=== PATIENT | female | born 1995 | race Caucasian/White ===

== ENCOUNTER 2017-09-18 00:07 | Emergency (ER) | payer OTHER ==
[~2017-09-18] VITALS: Ht 167.6 cm; Wt 64.5 kg
[2017-09-18 00:10] VITALS: Ht 167.6 cm; Wt 64.5 kg
[2017-09-18 00:22] VITALS: TEMP 36.5
[2017-09-18] MEDS ORDERED: SODIUM CHLORIDE 0.9% 1000ML 1,000 ML IV STA (00:26)
[2017-09-18] MEDS ORDERED: KETOROLAC TROMETHAMINE 30 MG/ML VIAL IV STA (00:26)
[2017-09-18] MEDS ORDERED: DiphenhydrAMINE HCL 50 MG/ML VIAL IV STA (00:26)
[2017-09-18] MEDS ORDERED: PROCHLORPERAZINE 5 MG/ML 2 ML VIAL IV STA (00:26)
--- NOTE | 2017-09-18 00:34 | EMERGENCY ROOM VISIT NOTE ---
History Report prepared by Alidaibchad: Bekah Mcnamara Under the Supervision of: Dr. Maru Vazquez D.O. First contact with patient: 00:15 Chief Complaint: HEADACHE Stated Complaint: MIGRAINE,THROWING UP FOR 2 HRS History of Present Illness The patient is a 22 year old female who presents to the Emergency Room with complaints of recurrent migraine since 1729 yesterday. She reports the headache began at that time. She has a history of migraines. She took an injection of 100 mg Sumatriptan and the migraine resolved for one hour, though returned. She states the migraines usually resolve after medication. She states that she has been hospitalized twice for migraines, though the last time was in Summer 2016. She denies any changes with her symptoms with this migraine, though states this migraine is worse than previous ones. She notes nausea and vomiting. Per friend , she has been vomiting for three hours. She denies any sickness, cough, or cold. Her LNMP was one week ago. She denies any other underlying medical problems. She is a [employer] student. She is from [place]. Source of History: patient, friend Onset: 1729 yesterday Position: head Quality: ache Timing: other (recurrent) Associated Symptoms: + nausea, + vomiting, No cough Review of Systems See HPI for pertinent positives & negatives. A total of 10 systems reviewed and were otherwise negative. Past Medical & Surgical Medical Problems: (1) Migraine Family History No pertinent family history Social History Smoking Status: Never Smoker Smokeless Tobacco Use: No Alcohol Use: none Drug Use: none Marital Status: single Housing Status: lives with roommate Occupation Status: [employer] student Current/Historical Medications Scheduled Amphetamine-Dextroamphetamine 20MG (Adderall Xr 20MG), 20 MG PO [id number] Scheduled PRN Amphetamine-Dextroamphetamine 20MG (Adderall 20MG), 20 MG PO DAILY PRN for adhd Sumatriptan Succinate (Imitrex), 100 MG PO UD PRN for Migraine Allergies Coded Allergies: Amoxicillin (Verified Allergy, Intermediate, RASH, 09/18/17) Physical Exam Vital Signs Date Time Temp Pulse Resp B/P (MAP) Pulse Ox O2 Delivery O2 Flow Rate FiO2 09/18/17 02:32 52 16 112/61 99 09/18/17 01:14 54 16 112/65 96 Room Air 09/18/17 00:22 36.5 09/18/17 00:10 60 18 123/88 99 Room Air Physical Exam General: Appears uncomfortable and is photophobic. HEENT: Head - normocephalic and atraumatic Pupils are equal, round, and reactive to light. Extraocular eye muscles are intact, and sclera are anicteric. Nose - moist nasal mucosa without discharge. Mouth - moist buccal mucosa. Oropharynx is nonerythematous and there is no tonsillar exudate or edema noted. Neck: Supple; no JVD, nuchal rigidity, cervical lymphadenopathy. Heart: Regular rate and rhythm. There is a normal S1 and S2 with no murmurs, clicks, or gallops appreciated. Lungs: Clear to auscultation bilaterally with no wheezes, rales, or rhonchi. Abdomen: Soft, completely nontender, nondistended, with good bowel sounds. There are no palpable pulsatile masses or hepatosplenomegaly. There is no guarding, rigidity, or rebound noted. Extremities: No evidence of cyanosis, clubbing, or edema. There are easily palpable peripheral pulses. Skin: warm and dry with good turgor and no rashes. Neuro: No focal findings Medical Decision & Procedures Medications Administered Medications (Trade) Dose Ordered Sig/Mu Route Start Time Stop Time Status Last Admin Dose Admin Sodium Chloride 1,000 ml @ 999 mls/hr Q1H1M STAT IV 09/18/17 00:26 09/18/17 01:26 DC 09/18/17 00:36 999 MLS/HR Ketorolac Tromethamine (Toradol Inj) 30 mg NOW STAT IV 09/18/17 00:26 09/18/17 00:27 DC 09/18/17 00:36 30 MG Prochlorperazine Edisylate (Compazine Inj) 10 mg NOW STAT IV 09/18/17 00:26 09/18/17 00:27 DC 09/18/17 00:40 10 MG Diphenhydramine HCl (Benadryl Inj) 12.5 mg NOW STAT IV 09/18/17 00:26 09/18/17 00:27 DC 09/18/17 00:38 12.5 MG Procedure 0026: Ordered Benadryl 12.5 mg IV, Compazine 10 mg IV, Toradol 30 mg IV, and Sodium Chloride 1,000 ml @ 999 mls/hr IV. ED Course 0020: Past medical records reviewed. The patient was evaluated in room B5. A complete history and physical exam was performed. An IV lock was initiated 0026: Ordered Benadryl 12.5 mg IV, Compazine 10 mg IV, Toradol 30 mg IV, and Sodium Chloride 1,000 ml @ 999 mls/hr IV. 0132: I reassessed the patient at this time. She is resting comfortably. 0217: I reassessed the patient at this time. She is feeling better and resting comfortably. I discussed the results and treatment plan with the patient. I answered all pertaining questions that she had. She expressed understanding and verbalized agreement. The patient will be discharged home. Medical Decision The patient is a 22 year old female who presents to the ED with migraine. Differential diagnosis includes migraine, tension headache, and cluster headache. This is a 22-year-old female patient has a history of migraines and presents to the emergency department with an intractable migraine. She had taken her usual medications at home but got no relief of the migraine. The patient was given a cocktail of meds here in the emergency department which gave her complete relief of her symptoms. She was able to sleep here for some time. She was encouraged to follow-up with the [facility] if the symptoms persisted. Medication Reconcilliation Current Medication List: was personally reviewed by me Blood Pressure Screening Patient's blood pressure: Normal blood pressure Impression Primary Impression: Migraine Scribe Attestation The scribe's documentation has been prepared under my direction and personally reviewed by me in its entirety. I confirm that the note above accurately reflects all work, treatment, procedures, and medical decision making performed by me. Departure Information Dispostion Home / Self-Care Referrals No Doctor, Assigned (PCP) Forms HOME CARE DOCUMENTATION FORM, IMPORTANT VISIT INFORMATION Patient Instructions ED Headache Migraine, My [facility] Additional Instructions Rest. take plenty of clear liquids Take a well-balanced diet. Follow up at the [facility] in [place] if migraine persists Problem Qualifiers Primary Impression: Migraine Migraine type: unspecified Status migrainosus presence: without status migrainosus Intractability: not intractable Qualified Codes: G43.909 - Migraine, unspecified, not intractable, without status migrainosus
[2017-09-18] MEDS ORDERED: AMPH20TA2 PO (00:59)
[2017-09-18] MEDS ORDERED: AMPH20CA3 PO (00:59)
[2017-09-18] MEDS ORDERED: SUMA100T16 PO (00:59)
[2017-09-18 02:32] VITALS: BP 112/61; PULSE 52; O2SAT 99
== END 2017-09-18 02:35 | disposition home or self-care (01) ==
LOC: C.EDB 00:09
DX: G43.909 Migraine, unspecified, not intractable, without status migrainosus (principal); Z79.899 Other long term (current) drug therapy